=== PATIENT | female | born 1935 | race Caucasian/White ===

== ENCOUNTER → 2018-05-11 | Outpatient (CLI) | payer OTHER | END | disposition home or self-care (01) | LOC: LAB SHORT 13:42 → LAB 13:42 | DX: R35.0 Frequency of micturition (principal) | CPT/HCPCS: 87077; 87086; 87186 ==

== ENCOUNTER 2018-07-20 02:58 | Inpatient (IN) | payer OTHER ==
[~2018-07-20] VITALS: Ht 160 cm; Wt 59.3 kg
[2018-07-20 03:29] LABS: BASOPHILS ABSOLUTE AUTO 0.09 K/mm3 (0.00-0.23); BASOPHILS PERCENT AUTO 1 % (0-2); EOSINOPHILS ABSOLUTE AUTO 0.31 K/mm3 (0.00-0.68); EOSINOPHILS PERCENT AUTO 4 % (0-6); Hematocrit 43.8 % (33.0-51.0); Hemoglobin 14.2 g/dL (11.5-16.0); IMMATURE GRAN ABSOLUTE AUTO 0.02 K/mm3 (0.00-0.10); IMMATURE GRAN PERCENT AUTO 0 % (0-1); LYMPHOCYTES ABSOLUTE AUTO 2.49 K/mm3 (0.84-5.20); LYMPHOCYTES PERCENT AUTO 32 % (21-46); MONOCYTES ABSOLUTE AUTO 0.46 K/mm3 (0.16-1.47); MONOCYTES PERCENT AUTO 6 % (4-13); Mean Corpuscular HGB 29.3 pg (26.0-34.0); Mean Corpuscular HGB Conc 32.4 g/dL (31.5-36.5); Mean Corpuscular Volume 91 fL (80-100); NEUTROPHILS ABSOLUTE AUTO 4.38 K/mm3 (1.96-9.15); NEUTROPHILS PERCENT AUTO 57 % (41-73); RDW Coefficient Variation 12.3 % (11.7-14.2); RDW Standard Deviation 40.7 fL (35.1-46.3); Red Blood Cell Count 4.84 M/mm3 (3.80-5.20); White Blood Cell Count 7.75 K/mm3 (4.00-11.30)
[2018-07-20 03:36] LABS: Mean Platelet Volume 9.9 fL (9.1-12.4); Platelet Count 200 K/mm3 (150-400)
[2018-07-20 03:52] LABS: Albumin, Blood 3.9 g/dL (3.4-5.0); Albumin/Globulin Ratio 1.2 (0.8-1.8); Anion Gap 10 mmol/L (6-16); Blood Urea Nitrogen 12 mg/dL (8-24); Bun/Creatinine Ratio 15.4 (12.0-20.0); CO2, Blood 25 mmol/L (21-32); Calcium, Blood 8.8 mg/dL (8.5-10.1); Chloride, Blood 108 mmol/L (98-108); Creatinine, Blood 0.78 mg/dL (0.40-1.00); Globulin, Blood 3.2 g/dL (2.2-4.0); Glomerular Filtration Rate >60 (60-); Glucose, Blood 134 mg/dL (70-99); Potassium, Blood 4.2 mmol/L (3.5-5.5); Sodium, Blood 143 mmol/L (136-145); Total Protein, Blood 7.1 g/dL (6.4-8.2)
[2018-07-20 03:53] LABS: Alanine Aminotransfer (ALT/SGP 20 U/L (12-78); Alk Phos 72 U/L (50-136); Aspartate Aminotrans (AST/SGOT 24 U/L (12-37); Bilirubin, Total 0.5 mg/dL (0.1-1.0)
[2018-07-20 03:54] LABS: Troponin I 0.565 ng/mL (0.000-0.040)
[2018-07-20 05:06] LABS: International Normalized Ratio 0.99; Prothrombin Time Results 10.5 Sec (9.7-11.5)
--- NOTE | 2018-07-20 14:15 | NUR ---
Left message with Dr. Carter's cell phone at this time after receiving a call from Dr. So that the echocardiogram has been read and that the results were abnormal.
--- NOTE | 2018-07-20 16:49 | NUR ---
SHIFT SUMMARY 1500 PT RECEIVED FROM ER. ALERT AND ORIENTED X3. VERY HARD OF HEARING WITH HEARING AIDS IN. DENIES PAIN AT THIS TIME. AMBULATED TO BATHROOM WITH STANDBY ASSIST. PT COMMUNICATING WITH FAMILY VIA CELL PHONE. LUNG SOUNDS EXPIRATORY WHEEZES THROUGHOUT. NSR WITH PACs & PVCs RATE IN THE 70s PER TELEMETRY. WILL CONTINUE TO MONITOR.
--- NOTE | 2018-07-21 05:28 | NUR ---
SHIFT SUMMARY- PT HAS REMAINED AOX4 THROUGHOUT THE SHIFT. VSS. PLEASANT AND COOPERATIVE WITH CARE. PT CONTINUES TO AMBULATE WITH STANDBY ASSIST TO BATHROOM WITHOUT DIFFICULTY. DENIES CHEST PAIN THROUGHOUT THE NIGHT. PT HAS RESTED THROUGHOUT THE NIGHT, WAKING EASILY FOR VITAL SIGNS AND CARE. HEPARIN DRIP INFUSING AT THIS TIME, TITRATED PER PHARMACY. PT HAS REMAINED NPO SINCE MIDNIHT FOR POTENTIAL PROCEDURE TODAY. HEART RHYHTM HAS REMAINED NSR WITH PVC'S AND PAC'S, PT WITH ONE RUN OF V-TACH LAST NIGHT THAT WAS ASYMPTOMATIC. NO OTHER CHANGES FROM INITIAL ASSESSMENT. WILL CONTINUE TO MONITOR AND REPORT TO ONCOMING SHIFT RN. BED IN LOW POSITION, CALL LIGHT IN REACH.
--- NOTE | 2018-07-21 15:06 | NUR ---
1345 PT RETURNED FROM HEART CENTER. RIGHT GROIN SOFT, NO BLEED OR HEMATOMA, ANGIOSEAL DRSG CDI. PT PLACED ON BEDPAN MULTIPLE TIMES. RIGHT GROIN SLIGHT OOZING NOTED, DRSG REMOVED. ROBERTH HEMOSTASIS PAD PLACED, MANUAL PRESSURE APPLIED. HEMOSTASIS OBTAINED. OPSITE DRSG APPLIED OVER ROBERTH PAD. WILL CONTINUE TO MONITOR. WILL CONTINUE BEDREST AT THIS TIME. CALL LIGHT IN REACH.
--- NOTE | 2018-07-21 19:08 | NUR ---
SHIFT SUMMARY PT RESTING IN BED THROUGHOUT THE DAY. VSS. ALERT AND ORIENTED X3. DENIES PAIN THROUGHOUT THE DAY. LUNG SOUNDS CLEAR, DIMINISHED BASES. NSR WITH PACs AND PVCs RATE IN THE 70-80s THROUGHOUT THE DAY. PT RETURNED FROM HEART CENTER, RIGHT WRIST SOFT, NO BLEED OR HEMATOMA NOTED, BRUISING NOTED TO RIGHT WRIST. RIGHT GROIN SOFT, NO BLEED OR HEMATOMA NOTED, ANGIOSEAL DRSG CDI. SOME OOZING NOTED TO RIGHT GROIN, ROBERTH HEMOSTASIS PAD APPLIED TO RIGHT GROIN. SANDBAG APPLIED TO RIGHT GROIN. PT REMAINED SUPINE THROUGHOUT AFTERNOON. RIGHT GROIN STABLE. PT SITTING UP FOR DINNER. ROBERTH PAD NOTED TO BE FULLY SATURATED. WILL CONTINUE TO MONITOR. REPORT TO OUTBOUND CALL CENTER REPRESENTATIVE RN.
--- NOTE | 2018-07-21 20:00 | NUR ---
ASSUMED CARE- PT CURRENTLY RESTING IN BED WITH HEAD RAISED APPROXIMATELY 45-60 DEGREES- PT EATING FINGER FOOD DINNE AND TOLERATING WELL. R GROIN SITE NOTED TO HAVE TEGADERM AND ROBERTH DRESSING THAT IS SATURATED WITH RED DRAINAGE FROM SLOW OOZING OF SITE. NO BRUISING, HEMATOMA, SWELLING OR TENDERNESS NOTED TO SITE. PT EDUCATED ON POST CATHETERIZATION PRECAUTIONS WITH STRAINING AND MOBILITY. DRESSING CHANGED TO NEW ROBERTH WITH TEGADERM AND PRESSURE DRESSING. PT TOLERATED WELL. WILL CONTINUE WITH ASSESSMENT AND MONITORING. BED IN LOW POSITION, CALL LIGHT IN REACH.
[2018-07-22 04:36] LABS: Mean Platelet Volume 10.3 fL (9.1-12.4); Platelet Count 206 K/mm3 (150-400)
[2018-07-22 04:53] LABS: Anion Gap 9 mmol/L (6-16); Blood Urea Nitrogen 13 mg/dL (8-24); Bun/Creatinine Ratio 15.8 (12.0-20.0); CO2, Blood 24 mmol/L (21-32); Calcium, Blood 8.2 mg/dL (8.5-10.1); Chloride, Blood 111 mmol/L (98-108); Creatinine, Blood 0.82 mg/dL (0.40-1.00); Glomerular Filtration Rate >60 (60-); Glucose, Blood 99 mg/dL (70-99); Potassium, Blood 3.6 mmol/L (3.5-5.5); Sodium, Blood 144 mmol/L (136-145)
--- NOTE | 2018-07-22 06:19 | NUR ---
SHIFT SUMMARY- PT HAS REMAINED AOX4 THROUGHOUT SHIFT. VSS. PLEASANT AND COOPERATIVE WITH CARE. PT CONTINUES TO USE BEDPAN THROUGHOUT THE NIGHT WITH MINIMAL DIFFICULTY. R GROIN SITE HAS HAD NO FURTHER BLEEDING NOTED, NO BRUISING, HEMATOMA OR SWELLING. PT DENIES PAIN AT SITE OR IN ABDOMEN ON PALPATION. PT HAS RESTED WELL THROUGHOUT THE NIGHT. NO OTHER CHANGES NOTED FROM INITIAL ASSESSMENT, WILL CONTINUE TO MONITOR AND REPORT TO ONCOMING SHIFT RN. BED IN LOW POSITION, CALL LIGHT IN REACH.
--- NOTE | 2018-07-22 08:02 | NUR ---
NURSING PCU DAYSHIFT: Assumed care of pt at approx 0700. A/O, very pleasant, cooperative w/care, INAJA. Denies any significant pain though c/o mild tenderness in RFA r/t recent angiogram. Scattered bruising to ext's, bruising to wrist from attempted radial access, R femoral access site w/dressing in place, no bleeding or hematoma noted. Ambulates independently and w/o difficlty. Tele in place, NSR w/PVC's and PAC's, no c/o CP/pressure, BP stable, no noted edema. L/S cta t/o, O2 sat stable on RA, denies dyspnea. Abd SNT, BT+, voiding w/o difficulty. PIV x2, s/l. Pt denies any current needs or questions regarding plan of care. Call light in reach and pt is able to use w/o difficulty. Awaiting rounding from PMD and cup trimming machine operator. Cont to monitor for any changes.
[2018-07-22] MEDS ORDERED: ASPI81CH PO (10:32)
[2018-07-22] MEDS ORDERED: ACET325 PO (10:32)
[2018-07-22] MEDS ORDERED: ATOR40TA PO (10:33)
[2018-07-22] MEDS ORDERED: CARV3.125 PO (10:33)
[2018-07-22] MEDS ORDERED: CLOP75 PO (10:33)
[2018-07-22] MEDS ORDERED: Lisinopril2.5 MG PO (10:34)
--- NOTE | 2018-07-22 10:38 | NUR ---
NURSING PCU DISCHARGE SUMMARY: No acute changes noted t/o the a.m. Seen by PMD, discharge home d/o received. R femoral site remains stable after ambulation. Pt has verbalized understanding of all written and verbal discharge instructions. PIV x2 dc'd w/caths intact. Awaiting tranportation home, monitor until discharge is completed.
== END 2018-07-22 11:42 | disposition home or self-care (01) | DRG 246 ==
LOC: ER 02:58 → PCU 04:08 → ERHOLD 04:08 → PCU 14:57
PROVIDERS: Emergency Medicine; Internal Medicine Cardiovascular Disease; ADMIT Internal Medicine
PROC: 027136Z Dilation of Coronary Artery, Two Arteries with Three Drug-eluting Intraluminal Devices, Percutaneous Approach (ICD-10-PCS; principal; 2018-07-21)
PROC: B2111ZZ Fluoroscopy of Multiple Coronary Arteries using Low Osmolar Contrast (ICD-10-PCS; 2018-07-21)
DX: I21.4 Non-ST elevation (NSTEMI) myocardial infarction (principal); I50.21 Acute systolic (congestive) heart failure; K51.90 Ulcerative colitis, unspecified, without complications; I25.10 Atherosclerotic heart disease of native coronary artery without angina pectoris; Z79.82 Long term (current) use of aspirin; Z79.02 Long term (current) use of antithrombotics/antiplatelets
CPT/HCPCS: 36415; 71046; 80048; 80053; 84484; 85025; 85049; 85347; 85610; 85730; 93005; 93010; 93306; 93454; 96365; 96366; 99152; 99153; 99285-25; C1725; C1760; C1769; C1874; C1887; C1894; C9600; C9601; J1644; J2250; J2405; J3010; J7030; Q9967

== ENCOUNTER → 2018-07-29 | Outpatient (CLI) | payer OTHER ==
[~2018-07-29] MED LIST: ACET325 PO; ASPI81CH PO; ATOR40TA PO; CARV3.125 PO; CLOP75 PO; Lisinopril2.5 MG PO
== END | disposition home or self-care (01) ==
LOC: LAB SHORT 19:04 → LAB 19:04
DX: R35.0 Frequency of micturition (principal)
CPT/HCPCS: 87077; 87086; 87186

== ENCOUNTER → 2018-08-08 | Outpatient (CLI) | payer OTHER ==
[2018-08-08 12:40] LABS: Bilirubin, Urine Neg (Neg); Blood, Urine Neg (Neg); Glucose Qualitative, Urine Neg (Neg); Ketones, Urine Neg (Neg); Leukocyte Esterase, Urine 1+ (Neg); Nitrite, Urine Neg (Neg); Protein, Urine Neg (Neg); Urobilinogen, Urine NORM (Normal); pH, Urine 6.5 (5.0-8.0)
[2018-08-08 12:50] LABS: Appearance, Urine Clear (Clear); Bacteria Rare /hpf; Color, Urine Pale Yellow (P-Yellow); Red Blood Cells, Urine Not Seen /hpf (0-2); Squamous Epithelial Cells Few /hpf (Few); White Blood Cells, Urine 0-2 /hpf (0-5)
== END | disposition home or self-care (01) ==
LOC: LAB SHORT 12:33 → LAB 12:33
PROVIDERS: Hospitalist
DX: N39.0 Urinary tract infection, site not specified (principal)
CPT/HCPCS: 81001; 87086

== ENCOUNTER → 2018-12-14 | Outpatient (CLI) | payer OTHER | END | disposition home or self-care (01) | LOC: LAB 17:46 → LAB SHORT 17:46 | DX: N39.0 Urinary tract infection, site not specified (principal) | CPT/HCPCS: 87077; 87086; 87186 ==

== ENCOUNTER → 2019-06-30 | Outpatient (CLI) | payer OTHER | END | disposition home or self-care (01) | LOC: LAB SHORT 17:53 → LAB 17:53 | DX: R31.9 Hematuria, unspecified (principal) | CPT/HCPCS: 87086 ==

== ENCOUNTER → 2020-05-29 | Outpatient (CLI) | payer OTHER | LOC: LAB SHORT 13:45 | DX: N39.41 Urge incontinence (principal) | CPT/HCPCS: 87077; 87086; 87186 ==

== ENCOUNTER 2020-06-07 21:59 | Emergency (ER) | payer OTHER ==
[~2020-06-07] VITALS: Ht 160 cm; Wt 57.6 kg
[2020-06-07] MEDS ORDERED: CIPR500 PO (22:28)
[2020-06-07] MEDS ORDERED: LOSA25 PO (22:30)
[2020-06-07 23:06] LABS: BASOPHILS ABSOLUTE AUTO 0.04 K/mm3 (0.00-0.23); BASOPHILS PERCENT AUTO 1 % (0-2); EOSINOPHILS ABSOLUTE AUTO 0.29 K/mm3 (0.00-0.68); EOSINOPHILS PERCENT AUTO 4 % (0-6); Hematocrit 39.9 % (33.0-51.0); Hemoglobin 13.2 g/dL (11.5-16.0); IMMATURE GRAN ABSOLUTE AUTO 0.02 K/mm3 (0.00-0.10); IMMATURE GRAN PERCENT AUTO 0 % (0-1); LYMPHOCYTES ABSOLUTE AUTO 1.59 K/mm3 (0.84-5.20); LYMPHOCYTES PERCENT AUTO 24 % (21-46); MONOCYTES ABSOLUTE AUTO 0.56 K/mm3 (0.16-1.47); MONOCYTES PERCENT AUTO 8 % (4-13); Mean Corpuscular HGB 29.5 pg (26.0-34.0); Mean Corpuscular HGB Conc 33.1 g/dL (31.5-36.5); Mean Corpuscular Volume 89 fL (80-100); Mean Platelet Volume 9.7 fL (9.1-12.4); NEUTROPHILS ABSOLUTE AUTO 4.17 K/mm3 (1.96-9.15); NEUTROPHILS PERCENT AUTO 63 % (41-73); Platelet Count 207 K/mm3 (150-400); RDW Coefficient Variation 12.2 % (11.7-14.2); RDW Standard Deviation 40.2 fL (35.1-46.3); Red Blood Cell Count 4.47 M/mm3 (3.80-5.20); White Blood Cell Count 6.67 K/mm3 (4.00-11.30)
[2020-06-07 23:24] LABS: Alanine Aminotransfer (ALT/SGP 63 U/L (12-78); Albumin, Blood 3.6 g/dL (3.4-5.0); Albumin/Globulin Ratio 1.1 (0.8-1.8); Alk Phos 85 U/L (50-136); Anion Gap 7 mmol/L (6-16); Aspartate Aminotrans (AST/SGOT 101 U/L (12-37); Bilirubin, Total 0.5 mg/dL (0.1-1.0); Blood Urea Nitrogen 14 mg/dL (8-24); Bun/Creatinine Ratio 16.5 (12.0-20.0); CO2, Blood 27 mmol/L (21-32); Calcium, Blood 8.6 mg/dL (8.5-10.1); Chloride, Blood 106 mmol/L (98-108); Creatinine, Blood 0.85 mg/dL (0.40-1.00); Globulin, Blood 3.2 g/dL (2.2-4.0); Glomerular Filtration Rate >60 (60-); Glucose, Blood 109 mg/dL (70-99); Potassium, Blood 3.7 mmol/L (3.5-5.5); Sodium, Blood 140 mmol/L (136-145); Total Protein, Blood 6.8 g/dL (6.4-8.2)
[2020-06-07 23:47] LABS: Source, Urine Voided
[2020-06-07 23:49] LABS: Bilirubin, Urine Neg (Neg); Blood, Urine 3+ (Neg); Glucose Qualitative, Urine Neg (Neg); Ketones, Urine Neg (Neg); Leukocyte Esterase, Urine 1+ (Neg); Nitrite, Urine Neg (Neg); Protein, Urine Neg (Neg); Urobilinogen, Urine NORM (Normal)
[2020-06-07 23:53] LABS: Appearance, Urine Clear (Clear); Color, Urine Yellow (P-Yellow)
[2020-06-07 23:54] LABS: Bacteria Few /hpf; Red Blood Cells, Urine 0-2 /hpf (0-2); Squamous Epithelial Cells Few /hpf (Few); White Blood Cells, Urine 0-2 /hpf (0-5)
== END 2020-06-08 01:03 | disposition home or self-care (01) ==
LOC: ER 21:59
PROVIDERS: Physician Assistant
DX: K59.00 Constipation, unspecified (principal); I25.2 Old myocardial infarction; Z88.2 Allergy status to sulfonamides; Z79.02 Long term (current) use of antithrombotics/antiplatelets; Z79.82 Long term (current) use of aspirin; Z79.899 Other long term (current) drug therapy
CPT/HCPCS: 36415; 74176; 80053; 81001; 83690; 85025; 93005; 93010; 96374; 99284-25; A9270; J2405

== ENCOUNTER 2020-06-12 20:31 | Emergency (ER) | payer OTHER ==
[~2020-06-12] VITALS: Ht 160 cm; Wt 57.6 kg
[~2020-06-12 20:31] MED LIST changes: +CIPR500 PO; +LOSA25 PO
[2020-06-12 22:28] LABS: BASOPHILS ABSOLUTE AUTO 0.07 K/mm3 (0.00-0.23); BASOPHILS PERCENT AUTO 1 % (0-2); EOSINOPHILS ABSOLUTE AUTO 0.11 K/mm3 (0.00-0.68); EOSINOPHILS PERCENT AUTO 1 % (0-6); Hematocrit 40.3 % (33.0-51.0); Hemoglobin 13.3 g/dL (11.5-16.0); IMMATURE GRAN ABSOLUTE AUTO 0.04 K/mm3 (0.00-0.10); IMMATURE GRAN PERCENT AUTO 0 % (0-1); LYMPHOCYTES ABSOLUTE AUTO 1.32 K/mm3 (0.84-5.20); LYMPHOCYTES PERCENT AUTO 10 % (21-46); MONOCYTES ABSOLUTE AUTO 0.74 K/mm3 (0.16-1.47); MONOCYTES PERCENT AUTO 6 % (4-13); Mean Corpuscular HGB 29.2 pg (26.0-34.0); Mean Corpuscular Volume 88 fL (80-100); Mean Platelet Volume 9.7 fL (9.1-12.4); NEUTROPHILS ABSOLUTE AUTO 11.08 K/mm3 (1.96-9.15); NEUTROPHILS PERCENT AUTO 83 % (41-73); Platelet Count 232 K/mm3 (150-400); RDW Coefficient Variation 12.2 % (11.7-14.2); Red Blood Cell Count 4.56 M/mm3 (3.80-5.20); White Blood Cell Count 13.36 K/mm3 (4.00-11.30)
[2020-06-12 22:42] LABS: Alanine Aminotransfer (ALT/SGP 49 U/L (12-78); Albumin, Blood 3.9 g/dL (3.4-5.0); Albumin/Globulin Ratio 1.2 (0.8-1.8); Alk Phos 88 U/L (50-136); Anion Gap 6 mmol/L (6-16); Aspartate Aminotrans (AST/SGOT 37 U/L (12-37); Bilirubin, Total 0.7 mg/dL (0.1-1.0); Blood Urea Nitrogen 9 mg/dL (8-24); Bun/Creatinine Ratio 13.7 (12.0-20.0); CO2, Blood 27 mmol/L (21-32); Calcium, Blood 8.8 mg/dL (8.5-10.1); Chloride, Blood 103 mmol/L (98-108); Creatinine, Blood 0.66 mg/dL (0.40-1.00); Globulin, Blood 3.2 g/dL (2.2-4.0); Glomerular Filtration Rate >60 (60-); Glucose, Blood 141 mg/dL (70-99); Sodium, Blood 136 mmol/L (136-145); Total Protein, Blood 7.1 g/dL (6.4-8.2)
[2020-06-12 23:08] LABS: Source, Urine Voided
[2020-06-12 23:16] LABS: Bilirubin, Urine Neg (Neg); Blood, Urine 2+ (Neg); Glucose Qualitative, Urine Neg (Neg); Ketones, Urine Neg (Neg); Leukocyte Esterase, Urine Neg (Neg); Nitrite, Urine Neg (Neg); Protein, Urine Neg (Neg); Specific Gravity, Urine 1.015 (1.003-1.022); Urobilinogen, Urine NORM (Normal)
[2020-06-12 23:30] LABS: Appearance, Urine Clear (Clear); Color, Urine Yellow (P-Yellow)
[2020-06-12 23:31] LABS: Amorphous Light (0-Heavy); Bacteria Not Seen /hpf; Squamous Epithelial Cells Rare /hpf (Few); White Blood Cells, Urine Not Seen /hpf (0-5)
[2020-06-13] MEDS ORDERED: AMOCLA875 PO (00:06)
[2020-06-13] MEDS ORDERED: Miralax17 GM PO (00:06)
[2020-06-13] MEDS ORDERED: Colace100 MG PO (00:06)
== END 2020-06-13 00:33 | disposition home or self-care (01) ==
LOC: ER 20:31
PROVIDERS: Emergency Medicine
DX: K52.9 Noninfective gastroenteritis and colitis, unspecified (principal); K59.00 Constipation, unspecified; D72.829 Elevated white blood cell count, unspecified; I25.2 Old myocardial infarction; Z88.2 Allergy status to sulfonamides; Z79.899 Other long term (current) drug therapy; Z79.82 Long term (current) use of aspirin
CPT/HCPCS: 36415; 74177; 80053; 81001; 83690; 85025; 96360-59; 96361; 99284-25; A9270; J7030; Q9967

== ENCOUNTER → 2020-10-02 | Outpatient (CLI) | payer OTHER ==
[~2020-10-02] MED LIST changes: +AMOCLA875 PO; +Colace100 MG PO; +Miralax17 GM PO
== END | disposition home or self-care (01) ==
LOC: PLD 08:26 → LAB SHORT 08:26
DX: D48.5 Neoplasm of uncertain behavior of skin (principal)
CPT/HCPCS: 88305

== ENCOUNTER → 2021-01-13 | Outpatient (CLI) | payer OTHER | END | disposition home or self-care (01) | LOC: LAB SHORT 13:36 → LAB 13:36 | DX: N39.0 Urinary tract infection, site not specified (principal) | CPT/HCPCS: 87086 ==

== ENCOUNTER → 2021-02-06 | Outpatient (CLI) | payer OTHER ==
[2021-02-06 15:33] LABS: BASOPHILS ABSOLUTE AUTO 0.03 K/mm3 (0.00-0.23); BASOPHILS PERCENT AUTO 1 % (0-2); EOSINOPHILS ABSOLUTE AUTO 0.21 K/mm3 (0.00-0.68); EOSINOPHILS PERCENT AUTO 3 % (0-6); Hemoglobin 11.8 g/dL (11.5-16.0); IMMATURE GRAN ABSOLUTE AUTO 0.02 K/mm3 (0.00-0.10); IMMATURE GRAN PERCENT AUTO 0 % (0-1); LYMPHOCYTES ABSOLUTE AUTO 1.02 K/mm3 (0.84-5.20); LYMPHOCYTES PERCENT AUTO 16 % (21-46); MONOCYTES ABSOLUTE AUTO 0.47 K/mm3 (0.16-1.47); MONOCYTES PERCENT AUTO 8 % (4-13); Mean Corpuscular HGB 29.6 pg (26.0-34.0); Mean Corpuscular HGB Conc 31.9 g/dL (31.5-36.5); Mean Corpuscular Volume 93 fL (80-100); Mean Platelet Volume 10.9 fL (9.1-12.4); NEUTROPHILS ABSOLUTE AUTO 4.51 K/mm3 (1.96-9.15); NEUTROPHILS PERCENT AUTO 72 % (41-73); Platelet Count 177 K/mm3 (150-400); RDW Standard Deviation 43.6 fL (35.1-46.3); Red Blood Cell Count 3.98 M/mm3 (3.80-5.20); White Blood Cell Count 6.26 K/mm3 (4.00-11.30)
[2021-02-06 16:52] LABS: Alanine Aminotransfer (ALT/SGP 25 U/L (12-78); Albumin, Blood 3.3 g/dL (3.4-5.0); Albumin/Globulin Ratio 1.2 (0.8-1.8); Alk Phos 65 U/L (50-136); Anion Gap 5 mmol/L (6-16); Aspartate Aminotrans (AST/SGOT 19 U/L (12-37); Bilirubin, Total 0.4 mg/dL (0.1-1.0); Blood Urea Nitrogen 16 mg/dL (8-24); Bun/Creatinine Ratio 19.7 (12.0-20.0); CO2, Blood 28 mmol/L (21-32); Calcium, Blood 8.7 mg/dL (8.5-10.1); Chloride, Blood 107 mmol/L (98-108); Creatinine, Blood 0.81 mg/dL (0.40-1.00); Globulin, Blood 2.8 g/dL (2.2-4.0); Glomerular Filtration Rate >60 (60-); Glucose, Blood 136 mg/dL (70-99); Potassium, Blood 4.2 mmol/L (3.5-5.5); Sodium, Blood 140 mmol/L (136-145); Total Protein, Blood 6.1 g/dL (6.4-8.2)
== END | disposition home or self-care (01) ==
LOC: LAB SHORT 11:09 → LAB 11:09
PROVIDERS: Hospitalist
DX: R53.83 Other fatigue (principal)
CPT/HCPCS: 80053; 84443; 85025

== ENCOUNTER 2021-08-29 19:39 | Observation (INO) | payer OTHER ==
[~2021-08-29] VITALS: Ht 160 cm; Wt 57.7 kg
[~2021-08-29 19:39] MED LIST changes: -CIPR250 PO; -DOCU100 PO; -MIRALAX17 GM PO; -VISBIOME 112.51 EACH PO
[2021-08-29 21:03] LABS: BASOPHILS ABSOLUTE AUTO 0.06 K/mm3 (0.00-0.23); BASOPHILS PERCENT AUTO 1 % (0-2); EOSINOPHILS ABSOLUTE AUTO 0.15 K/mm3 (0.00-0.68); EOSINOPHILS PERCENT AUTO 2 % (0-6); Hematocrit 37.5 % (33.0-51.0); Hemoglobin 12.5 g/dL (11.5-16.0); IMMATURE GRAN ABSOLUTE AUTO 0.04 K/mm3 (0.00-0.10); IMMATURE GRAN PERCENT AUTO 0 % (0-1); LYMPHOCYTES ABSOLUTE AUTO 1.45 K/mm3 (0.84-5.20); LYMPHOCYTES PERCENT AUTO 15 % (21-46); MONOCYTES ABSOLUTE AUTO 0.82 K/mm3 (0.16-1.47); MONOCYTES PERCENT AUTO 8 % (4-13); Mean Corpuscular HGB 29.6 pg (26.0-34.0); Mean Corpuscular HGB Conc 33.3 g/dL (31.5-36.5); Mean Corpuscular Volume 89 fL (80-100); Mean Platelet Volume 9.6 fL (9.1-12.4); NEUTROPHILS ABSOLUTE AUTO 7.39 K/mm3 (1.96-9.15); NEUTROPHILS PERCENT AUTO 75 % (41-73); Platelet Count 229 K/mm3 (150-400); RDW Standard Deviation 39.4 fL (35.1-46.3); Red Blood Cell Count 4.22 M/mm3 (3.80-5.20); White Blood Cell Count 9.91 K/mm3 (4.00-11.30)
[2021-08-29 21:23] LABS: Alanine Aminotransfer (ALT/SGP 21 U/L (12-78); Albumin, Blood 3.5 g/dL (3.4-5.0); Albumin/Globulin Ratio 1.2 (0.8-1.8); Alk Phos 72 U/L (50-136); Anion Gap 7 mmol/L (6-16); Aspartate Aminotrans (AST/SGOT 18 U/L (12-37); Bilirubin, Total 0.6 mg/dL (0.1-1.0); Blood Urea Nitrogen 15 mg/dL (8-24); Bun/Creatinine Ratio 19.4 (12.0-20.0); CO2, Blood 28 mmol/L (21-32); Chloride, Blood 102 mmol/L (98-108); Creatinine, Blood 0.77 mg/dL (0.40-1.00); Glomerular Filtration Rate >60 (60-); Glucose, Blood 156 mg/dL (70-99); Potassium, Blood 3.7 mmol/L (3.5-5.5); Sodium, Blood 137 mmol/L (136-145); Total Protein, Blood 6.5 g/dL (6.4-8.2)
[2021-08-30] MEDS ORDERED: CLOP75 PO (00:48)
[2021-08-30 01:12] LABS: Influenza A, PCR NEGATIVE (NEGATIVE); Influenza B, PCR NEGATIVE (NEGATIVE); Resp Syncytial Virus, PCR NEGATIVE (NEGATIVE); SARS-Cov-2 (COVID-19) PCR, MMC NEGATIVE (NEGATIVE)
[2021-08-30] MEDS ORDERED: MIRALAX17 GM PO (02:56)
--- NOTE | 2021-08-30 04:51 | NUR ---
SHIFT SUMMARY PT ER ADMIT THIS SHIFT FOR CHOLELITHIASIS. PT TO HAVE POSSIBLE GALLBLADDER REMOVAL TODAY. SURGICAL CONSULT IN PLACE, ATTEMPTED TO CALL CONSULT IN THIS AM BUT PHONE WENT STRAIGHT TO . WILL NOTIFY DAYSHIFT RN FOR FOLLOW UP. PT NOT COMPLAINING OF ANY ABD AT THIS TIME. PT DENIES N/V IVF INFUSING ORDERED. NPO. PT A/OX4, BUT PT DOES REPORT MEMORY LOSS. VITALS ARE STABLE. BED IN LOWEST POSITION, CALL LIGHT WITHIN REACH.
--- NOTE | 2021-08-30 08:20 | NUR ---
TELEPHONE CALL WITH DR RODRÍGUEZ'S OFFICE AND CONFIRMED AND UPDATED PT MEDICATIONS. CLARIFIED WITH OFFICE THAT PT DOES NOT TAKE PLAVIX.
[2021-08-30] MEDS ORDERED: ASPI81CH PO (08:40)
[2021-08-30] MEDS ORDERED: DOCU100 PO (08:41)
[2021-08-30 09:09] LABS: BASOPHILS ABSOLUTE AUTO 0.04 K/mm3 (0.00-0.23); BASOPHILS PERCENT AUTO 1 % (0-2); EOSINOPHILS ABSOLUTE AUTO 0.18 K/mm3 (0.00-0.68); EOSINOPHILS PERCENT AUTO 3 % (0-6); Hematocrit 35.8 % (33.0-51.0); Hemoglobin 11.8 g/dL (11.5-16.0); IMMATURE GRAN ABSOLUTE AUTO 0.05 K/mm3 (0.00-0.10); IMMATURE GRAN PERCENT AUTO 1 % (0-1); LYMPHOCYTES ABSOLUTE AUTO 1.44 K/mm3 (0.84-5.20); LYMPHOCYTES PERCENT AUTO 20 % (21-46); MONOCYTES ABSOLUTE AUTO 0.69 K/mm3 (0.16-1.47); MONOCYTES PERCENT AUTO 10 % (4-13); Mean Corpuscular HGB 29.6 pg (26.0-34.0); Mean Corpuscular Volume 90 fL (80-100); Mean Platelet Volume 9.8 fL (9.1-12.4); NEUTROPHILS ABSOLUTE AUTO 4.74 K/mm3 (1.96-9.15); NEUTROPHILS PERCENT AUTO 66 % (41-73); Platelet Count 187 K/mm3 (150-400); RDW Coefficient Variation 12.1 % (11.7-14.2); RDW Standard Deviation 40.4 fL (35.1-46.3); Red Blood Cell Count 3.98 M/mm3 (3.80-5.20); White Blood Cell Count 7.14 K/mm3 (4.00-11.30)
[2021-08-30 09:18] LABS: Alanine Aminotransfer (ALT/SGP 62 U/L (12-78); Albumin, Blood 2.9 g/dL (3.4-5.0); Alk Phos 63 U/L (50-136); Anion Gap 6 mmol/L (6-16); Aspartate Aminotrans (AST/SGOT 58 U/L (12-37); Bilirubin, Total 0.6 mg/dL (0.1-1.0); Blood Urea Nitrogen 11 mg/dL (8-24); Bun/Creatinine Ratio 16.5 (12.0-20.0); CO2, Blood 26 mmol/L (21-32); Chloride, Blood 109 mmol/L (98-108); Creatinine, Blood 0.67 mg/dL (0.40-1.00); Globulin, Blood 2.9 g/dL (2.2-4.0); Glomerular Filtration Rate >60 (60-); Glucose, Blood 104 mg/dL (70-99); Potassium, Blood 3.6 mmol/L (3.5-5.5); Sodium, Blood 141 mmol/L (136-145); Total Protein, Blood 5.8 g/dL (6.4-8.2)
[2021-08-30 11:48] LABS: Source, Urine Clean Catch
[2021-08-30 11:53] LABS: Appearance, Urine Clear (Clear); Bilirubin, Urine Neg (Neg); Blood, Urine 2+ (Neg); Color, Urine Yellow (P-Yellow); Glucose Qualitative, Urine Neg (Neg); Ketones, Urine 1+ (Neg); Leukocyte Esterase, Urine 1+ (Neg); Nitrite, Urine Neg (Neg); Protein, Urine Neg (Neg); Specific Gravity, Urine 1.015 (1.003-1.022); Urobilinogen, Urine NORM (Normal)
[2021-08-30 12:18] LABS: Squamous Epithelial Cells Mod /hpf (Few)
[2021-08-30 12:19] LABS: Bacteria Few /hpf
[2021-08-30 12:20] LABS: Mucus Light (0-Heavy)
--- NOTE | 2021-08-30 12:43 | NUR ---
THE PATIENT WAS BROUGHT TO DAY SURGERY FOR HER PROCEDURE.
--- NOTE | 2021-08-30 15:00 | NUR ---
ARRIVED FROM OR INTO PACU RECIEVED PATIENT AND REPORT VSS NO DRESSING
--- NOTE | 2021-08-30 15:37 | NUR ---
TO SURGICAL FLOOR WITH RN TRASFERED PATIENT TO BED WITH FLOOR RNS AND CNAS.
--- NOTE | 2021-08-30 16:52 | NUR ---
SHIFT SUMMARY PT A&OX4, VSS/RA, ANDREW PO, VOIDING WELL, AMB 1 PP MOD ASSIST WITH FWW & GB TO BRP, PAIN TREATED WITH TYLENOL, UP TO CHAIR. S/P KEVEN NASH, KEVEN MILLER CDI. WILL REPORT TO ONCOMING NOC RN.
[2021-08-31 04:18] LABS: Alanine Aminotransfer (ALT/SGP 296 U/L (12-78); Albumin, Blood 2.7 g/dL (3.4-5.0); Albumin/Globulin Ratio 0.8 (0.8-1.8); Alk Phos 109 U/L (50-136); Anion Gap 6 mmol/L (6-16); Aspartate Aminotrans (AST/SGOT 308 U/L (12-37); Bilirubin, Total 0.9 mg/dL (0.1-1.0); Blood Urea Nitrogen 14 mg/dL (8-24); Bun/Creatinine Ratio 18.8 (12.0-20.0); CO2, Blood 26 mmol/L (21-32); Calcium, Blood 8.1 mg/dL (8.5-10.1); Chloride, Blood 106 mmol/L (98-108); Creatinine, Blood 0.74 mg/dL (0.40-1.00); Globulin, Blood 3.2 g/dL (2.2-4.0); Glomerular Filtration Rate >60 (60-); Glucose, Blood 146 mg/dL (70-99); Potassium, Blood 3.8 mmol/L (3.5-5.5); Sodium, Blood 138 mmol/L (136-145); Total Protein, Blood 5.9 g/dL (6.4-8.2)
--- NOTE | 2021-08-31 05:35 | NUR ---
PARKING ENFORCER SUMMARY POD 0 LAP CHARITY. PT AAOX4 AND PLEASANT. DENIES PAIN TONIGHT. HAS BEEN ABLE TO AMBULATE WITH STANDBY ASSIST AND HAS BEEN VOIDING. TOLERATING PO FLUIDS WITH NO ISSUES. LAP INCISIONS C/D/I. VSS, WILL CONTINUE TO MONITOR.
--- NOTE | 2021-08-31 11:45 | NUR ---
Pt. is awake in bed. Pt. welcomes my visit. Spouse if present. Pt. is unsettled about waiting fro results of an MRI. Pt. displays evidence of mild but genuine anxiety. Provided a calming presence and through theraputic listening facilitate a life review. Address matters of families noy and belief, and observe that it is a comfort to them. [place] for pt. and spouse. Pt. displayed evidence of a renewed confidence and a hope for news of discharge. Both pt. and spouse rocioarlly express gratitude for the spiritual care visit.
--- NOTE | 2021-08-31 11:52 | NUR ---
08/31/21 1152 Serena Huitron VERIFICATIONS: EDIT CHART.
[2021-08-31] MEDS ORDERED: CIPR250 PO (12:43)
[2021-08-31] MEDS ORDERED: VISBIOME 112.51 EACH PO (12:43)
--- NOTE | 2021-08-31 15:08 | NUR ---
DISCHARGE SUMMARY PT A&OX4, VSS/RA, ANDREW PO, PAIN MANAGED WELL WITH TYLENOL, VOIDING WELL, AMB SBA. LEFT FLOOR VIA WC WITH SN TO GO HOME WITH AND SON, WITH ALL PERSONAL POSSESSIONS INCLUDING HEARING AIDS AND JEWELRY. IV DC'D.
== END 2021-08-31 13:30 | disposition home or self-care (01) ==
LOC: ER 19:39 → ERHOLD 19:40 → SURS 19:40 → ERHOLD 19:40 → SURS 08-30 01:47
PROVIDERS: Internal Medicine; Physician Assistant; ADMIT Internal Medicine
DX: K80.12 Calculus of gallbladder with acute and chronic cholecystitis without obstruction (principal); C23 Malignant neoplasm of gallbladder; I25.2 Old myocardial infarction; I10 Essential (primary) hypertension; E78.5 Hyperlipidemia, unspecified; I25.10 Atherosclerotic heart disease of native coronary artery without angina pectoris; R74.01 Elevation of levels of liver transaminase levels; Z79.82 Long term (current) use of aspirin; Z95.5 Presence of coronary angioplasty implant and graft; Z88.2 Allergy status to sulfonamides; Z20.822 Contact with and (suspected) exposure to COVID-19; Z87.19 Personal history of other diseases of the digestive system; R10.11 Right upper quadrant pain; K80.20 Calculus of gallbladder without cholecystitis without obstruction; N39.0 Urinary tract infection, site not specified
CPT/HCPCS: 0241U; 36415; 74181; 74300; 76705; 80053; 81001; 83690; 83880; 84484; 85025; 87077; 87086; 87186; 88304; 93005; 93010; 96374; 96375; 99284-25; A9270; C1729; G0378; J0295; J0690; J1100; J1610; J2270; J2405; J2704; J3010; J7030; J7050; J7120

== ENCOUNTER → 2021-08-29 | Outpatient (CLI) | payer OTHER ==
[~2021-08-29] MED LIST changes: +CIPR250 PO; +DOCU100 PO; +MIRALAX17 GM PO; +VISBIOME 112.51 EACH PO
[2021-08-29 10:44] LABS: BASOPHILS ABSOLUTE AUTO 0.05 K/mm3 (0.00-0.23); BASOPHILS PERCENT AUTO 1 % (0-2); EOSINOPHILS PERCENT AUTO 2 % (0-6); Hematocrit 39.2 % (33.0-51.0); Hemoglobin 13.1 g/dL (11.5-16.0); IMMATURE GRAN ABSOLUTE AUTO 0.02 K/mm3 (0.00-0.10); IMMATURE GRAN PERCENT AUTO 0 % (0-1); LYMPHOCYTES ABSOLUTE AUTO 1.34 K/mm3 (0.84-5.20); LYMPHOCYTES PERCENT AUTO 16 % (21-46); MONOCYTES ABSOLUTE AUTO 0.59 K/mm3 (0.16-1.47); MONOCYTES PERCENT AUTO 7 % (4-13); Mean Corpuscular HGB Conc 33.4 g/dL (31.5-36.5); Mean Corpuscular Volume 90 fL (80-100); Mean Platelet Volume 9.3 fL (9.1-12.4); NEUTROPHILS ABSOLUTE AUTO 6.03 K/mm3 (1.96-9.15); NEUTROPHILS PERCENT AUTO 73 % (41-73); Platelet Count 224 K/mm3 (150-400); RDW Coefficient Variation 12.1 % (11.7-14.2); RDW Standard Deviation 39.5 fL (35.1-46.3); Red Blood Cell Count 4.37 M/mm3 (3.80-5.20); White Blood Cell Count 8.23 K/mm3 (4.00-11.30)
[2021-08-29 10:55] LABS: Alanine Aminotransfer (ALT/SGP 25 U/L (12-78); Albumin, Blood 3.9 g/dL (3.4-5.0); Albumin/Globulin Ratio 1.3 (0.8-1.8); Alk Phos 77 U/L (40-126); Anion Gap 9 mmol/L (6-16); Aspartate Aminotrans (AST/SGOT 23 U/L (12-37); Bilirubin, Total 0.6 mg/dL (0.1-1.0); Blood Urea Nitrogen 10 mg/dL (8-24); Bun/Creatinine Ratio 12.3 (12.0-20.0); CO2, Blood 27 mmol/L (21-32); Calcium, Blood 9.2 mg/dL (8.5-10.1); Chloride, Blood 103 mmol/L (98-108); Creatinine, Blood 0.81 mg/dL (0.40-1.00); Glomerular Filtration Rate >60 (60-); Glucose, Blood 119 mg/dL (70-99); Potassium, Blood 3.8 mmol/L (3.5-5.5); Sodium, Blood 139 mmol/L (136-145); Total Protein, Blood 6.9 g/dL (6.4-8.2)
== END | disposition home or self-care (01) ==
LOC: LAB SHORT 10:38
PROVIDERS: Chiropractor
DX: N39.0 Urinary tract infection, site not specified (principal); R10.11 Right upper quadrant pain
CPT/HCPCS: 80053; 83690; 84484; 85025; 87077; 87086; 87186

== ENCOUNTER → 2022-03-26 | Outpatient (CLI) | payer OTHER ==
[~2022-03-26] MED LIST changes: +CIPR250 PO; +DOCU100 PO; +MIRALAX17 GM PO; +VISBIOME 112.51 EACH PO
[2022-03-26 15:28] LABS: Source, Urine Clean Catch
[2022-03-26 15:33] LABS: Appearance, Urine Hazy (Clear); Blood, Urine 3+ (Neg); Color, Urine Amber (P-Yellow); Glucose Qualitative, Urine Neg (Neg); Ketones, Urine 2+ (Neg); Leukocyte Esterase, Urine 1+ (Neg); Nitrite, Urine Pos (Neg); Protein, Urine 3+ (Neg); Specific Gravity, Urine 1.015 (1.003-1.022); Urobilinogen, Urine 3+ (Normal)
[2022-03-26 15:48] LABS: Bilirubin, Urine 2+ (Neg)
[2022-03-26 15:50] LABS: Bacteria Many /hpf; Squamous Epithelial Cells Mod /hpf (Few)
== END ==
LOC: LAB 14:45 → LAB SHORT 14:45
PROVIDERS: Radiology Therapeutic Radiology
DX: C23 Malignant neoplasm of gallbladder (principal); C78.7 Secondary malignant neoplasm of liver and intrahepatic bile duct
CPT/HCPCS: 81001; 87077; 87086; 87186